=== PATIENT | female | born 1955 | race Caucasian/White ===

== ENCOUNTER 2016-04-14 09:20 | Emergency (ER) | payer OTHER ==
[~2016-04-14] VITALS: Ht 154.9 cm; Wt 80.0 kg
[~2016-04-14 09:20] MED LIST: ADVA100A; CIME200; HYZA100T4; LEVO.05
[2016-04-14 09:24] VITALS: BP 178/87; PULSE 72; RESP 18; TEMP 98; O2SAT 95
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
[2016-04-14] MEDS ORDERED: ACETAMINOPHEN/HYDROcodone 325 MG/5 MG TAB PO ONE (09:45)
[2016-04-14] MEDS ORDERED: BACL10TA PO (09:46)
[2016-04-14] MEDS ORDERED: MILN12.5 PO (09:46)
[2016-04-14] MEDS ORDERED: AMLO2.5T PO (09:46)
[2016-04-14] MEDS ORDERED: SULF500T3 PO (09:46)
[2016-04-14] MEDS ORDERED: ADVA100A INH (09:46)
[2016-04-14] MEDS ORDERED: MONT4CHW4 CHEW (09:46)
[2016-04-14] MEDS ORDERED: VENTAER INH (09:47)
[2016-04-14] MEDS ORDERED: PRED5TAB PO (09:47)
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
[2016-04-14] MEDS ORDERED: HYDR-3533 PO (11:03)
== END 2016-04-14 11:08 | disposition home or self-care (01) ==
LOC: NEPB 09:20
DX: S52.292A Other fracture of shaft of left ulna, initial encounter for closed fracture (principal); V43.52XA Car driver injured in collision with other type car in traffic accident, initial encounter
CPT/HCPCS: 29125; 73090; 73110; 73130

== ENCOUNTER 2016-04-16 14:54 | Emergency (ER) | payer OTHER ==
[~2016-04-16] VITALS: Ht 154.9 cm; Wt 80.0 kg
[~2016-04-16 14:54] MED LIST changes: -ADVA100A; +ADVA100A INH; +AMLO2.5T PO; +BACL10TA PO; -CIME200; +HYDR-3533 PO; -HYZA100T4; -LEVO.05; +MILN12.5 PO; +MONT4CHW4 CHEW; +PRED5TAB PO; +SULF500T3 PO; +VENTAER INH
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
[2016-04-16 15:25] VITALS: BP 144/77; PULSE 82; RESP 18; O2SAT 95
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
[2016-04-16 16:05] LABS: AUTOMATED NEUTROPHIL # 6.1 TH/MM3 (1.8-7.7); BASOPHIL % 0.4 % (0.0-2.0); EOSINOPHIL # 0.6 TH/MM3 (0-0.4); EOSINOPHIL % 5.4 % (0.0-4.0); HEMATOCRIT 37.6 % (35.0-46.0); HEMO FLAGS DIFF FINAL; LYMPH % 24.9 % (9.0-44.0); LYMPHOCYTE # 2.6 TH/MM3 (1.0-4.8); MEAN CELL VOLUME 83.1 FL (80.0-100.0); MEAN CORPUSCULAR HEMOGLOBIN 28.4 PG (27.0-34.0); MEAN CORPUSCULAR HGB CONC 34.2 % (32.0-36.0); MONO % 10.7 % (0.0-8.0); NEUT % 58.6 % (16.0-70.0); PLATELET COUNT 287 TH/MM3 (150-450); RED BLOOD COUNT 4.52 MIL/MM3 (4.00-5.30); RED CELL DISTRIBUTION WIDTH 13.3 % (11.6-17.2); WHITE BLOOD COUNT 10.5 TH/MM3 (4.0-11.0)
[2016-04-16 16:18] LABS: PROTHROMBIN TIME - PATIENT 10.7 SEC (9.8-11.6)
[2016-04-16 16:30] LABS: ALKALINE PHOSPHATASE 111 U/L (45-117); TOTAL BILIRUBIN ADULT 0.3 MG/DL (0.2-1.0)
[2016-04-16 16:44] LABS: ALT (GPT) 18 U/L (10-53); ANION GAP 8 MEQ/L (5-15); AST (GOT) 19 U/L (15-37); BICARBONATE 31.5 MEQ/L (21.0-32.0); BLOOD UREA NITROGEN 17 MG/DL (7-18); CHLORIDE 105 MEQ/L (98-107); GLOMERULAR FILTRATION RATE 67 ML/MIN (>89); POTASSIUM 3.5 MEQ/L (3.5-5.1); SODIUM (NA) 144 MEQ/L (136-145)
[2016-04-16] MEDS ORDERED: IOHEXOL 350 MG/ML 10 ML VIAL (for RAD DIAG) IV ONE (17:04)
[2016-04-16] MEDS ORDERED: MONT10TA4 PO (17:30)
[2016-04-16] MEDS ORDERED: SODIUM CHLOR 0.9% 1000 ML INJ 1,000 ML IV ONE (17:45)
[2016-04-16] MEDS ORDERED: KETOROLAC TROMETHAMINE 30 MG/ML (IVP) VIAL IV PUSH ONE (17:45)
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
[2016-04-16 17:48] VITALS: BP 162/75; PULSE 69; RESP 18; O2SAT 98
== END 2016-04-16 19:01 | disposition home or self-care (01) ==
LOC: NEPC 14:54
DX: S20.211A Contusion of right front wall of thorax, initial encounter (principal); S30.1XXA Contusion of abdominal wall, initial encounter; J45.909 Unspecified asthma, uncomplicated; I10 Essential (primary) hypertension; E07.9 Disorder of thyroid, unspecified; K21.9 Gastro-esophageal reflux disease without esophagitis; Z86.73 Personal history of transient ischemic attack (TIA), and cerebral infarction without residual deficits
CPT/HCPCS: 71010; 74177; 80053; 85025; 85610; 85730; 96361; 96374; 99284; J1885; J7030; Q9967

== ENCOUNTER 2017-12-11 14:27 | Inpatient (IN) ==
[2017-12-11 15:05] LABS: Baso % (Auto) 0.1 % (0.0-2.0); Eos # (Auto) 0.2 th/mm3 (0.0-0.4); Eos % (Auto) 1.3 % (0.0-4.0); Hematocrit 41.1 % (35.0-46.0); Hemoglobin 13.9 gm/dL (11.6-15.3); Lymph # (Auto) 0.7 th/mm3 (1.0-4.8); Lymph % (Auto) 5.9 % (9.0-44.0); Mean Corpuscular HGB Conc 33.7 % (32.0-36.0); Mean Corpuscular Volume 85.9 fL (80.0-100.0); Mean Platelet Volume 7.1 fL (7.0-11.0); Mono # (Auto) 0.8 th/mm3 (0.0-0.9); Mono % (Auto) 6.6 % (0.0-8.0); Neut # (Auto) 10.6 th/mm3 (1.8-7.7); Neut % (Auto) 86.1 % (16.0-70.0); Platelet Count 288 th/mm3 (150-450); Red Blood Count 4.79 mil/mm3 (4.00-5.30); White Blood Count 12.3 th/mm3 (4.0-11.0)
--- NOTE | 2017-12-11 15:25 | CT ---
EXAM DATE: 12/11/2017 3:18 PM EDT AGE/SEX: 62 years / Female INDICATIONS: Stroke alert, left facial droop and left side weakness. CLINICAL DATA: This is the patient's initial encounter. Patient reports that signs and symptoms have been present for 1 day and indicates a pain score of Nonresponsive. MEDICAL/SURGICAL HISTORY: Non-responsive. Non-responsive. RADIATION DOSE: 25.92 CTDI (mGy) ; Combined studies [place] [facility] [place]. . TECHNIQUE: Volumetric scanning was performed using a multi-row detector CT scanner during bolus infu renita of 75 ml Visipaque 320 (iodixanol) nonionic water-soluble contrast as a cumulative dose for mul tiple exams. The data was post processed with a variety of visualization algorithms including full volume maximum intensity projection, multi-planar sliding thin slab reformation, curved planar reform ation, and surface rendering techniques. Using automated exposure control and adjustment of the mA a nd/or kV according to patient size, radiation dose was kept as low as reasonably achievable to obtain optimal diagnostic quality images. DICOM format image data is available electronically for review a nd comparison. FINDINGS: There is excellent visualization of the major intracranial arteries out to the second-order branch ve ssels. There is no evidence for aneurysm, vessel truncation or stenosis, and no evidence for vascula r malformation. CONCLUSION: 1. No evidence of proximal intracranial steno-occlusive vascular disease. 2. Normal CTA Electronically signed by: Edvin Guthrie MD 12/11/2017 3:23 PM EDT
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
--- NOTE | 2017-12-11 15:31 | XR ---
EXAM DATE: 12/11/2017 3:23 PM EDT AGE/SEX: 62 years / Female INDICATIONS: Stroke alert. CLINICAL DATA: This is the patient's initial encounter. Patient reports that signs and symptoms have been present for 1 day and indicates a pain score of Nonresponsive. MEDICAL/SURGICAL HISTORY: Non-responsive. Non-responsive. COMPARISON: [facility] [place]. . FINDINGS: Lungs are hypoaerated. There is diffuse interstitial vascular prominence. There is no evidence of con solidating airspace disease or mass densities. There are no pleural effusions. CONCLUSION: Poor inspiratory chest No evidence of acute process. Electronically signed by: Edvin Guthrie MD 12/11/2017 3:29 PM EDT
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
[2017-12-11 15:56] LABS: Activated Partial Thrombo Time 28.1 sec (24.3-30.1); Prothrombin Time 10.2 sec (9.8-11.6)
--- NOTE | 2017-12-11 15:56 | ED ---
HPI General Chief Complaint: Stroke Alert Stated Complaint: Poss Stroke Time Seen by Provider: 12/11/17 14:49 Source: patient Mode of arrival: wheelchair Limitations: altered mental status History of Present Illness HPI Narrative: This is a 62-year-old woman who presents to the emergency department complaining of. History comes from EMS, and from records from the [facility] urgent care, and coworker. Coworker states that she has not felt well for the entire day, she was referred to an urgent care. At the urgent care they noted that she had acute headache with dizziness, off balance, double vision, nausea with resolving symptoms. Was referred for an outpatient CT scan. Coworker states when they picked her up from the urgent care she then had some facial asymmetry, and weakness in her left leg. She thus brought her here. Patient is unable to provide any additional history. Related Data Home Medications Medication Instructions Recorded Confirmed albuterol sulfate [Ventolin HFA] 2 puff INHALATION Q4-6H PRN 12/11/17 12/11/17 amlodipine [Norvasc] 5 mg PO DAILY 12/11/17 12/11/17 aspirin 81 mg PO DAILY 12/11/17 12/11/17 baclofen 10 mg PO BID 12/11/17 12/11/17 cetirizine [Zyrtec] 10 mg PO DAILY 12/11/17 12/11/17 ibuprofen 200 mg PO Q6-8H PRN 12/11/17 12/11/17 leflunomide 10 mg PO DAILY 12/11/17 12/11/17 levothyroxine [Synthroid] 50 mcg PO DAILY 12/11/17 12/11/17 milnacipran [Savella] 100 mg PO BID 12/11/17 12/11/17 ranitidine HCl [Zantac] 150 mg PO BID 12/11/17 12/11/17 Allergies Allergy/AdvReac Type Severity Reaction Status Date / Time levofloxacin Allergy Severe Hives Unverified 11/14/16 21:01 penicillin G Allergy Intermediate HIVES Unverified 11/14/16 21:01 Review of Systems ROS: all other systems reviewed are negative PMFSH History History Provided By: Friend and Medical Record Social History Social History Substance History: No History of Abuse Second Hand Smoke Exposure: No Smoking Status: Never smoker How Often Do You Have a Drink Containing Alcohol: 2 to 4 times a month Recent Travel in [facility] within the Last 8 Weeks: No Exam Narrative Exam Narrative: GENERAL: 62-year-old woman, sluggishly responsive, nontoxic. SKIN: Focused skin assessment warm/dry. HEAD: Atraumatic. Normocephalic. EYES: Pupils equal and round. No scleral icterus. No injection or drainage. ENT: No nasal bleeding or discharge. Mucous membranes pink and moist. NECK: Trachea midline. No JVD. CARDIOVASCULAR: Regular rate and rhythm. No murmur appreciated. RESPIRATORY: No accessory muscle use. Clear to auscultation. Breath sounds equal bilaterally. GASTROINTESTINAL: Abdomen soft, non-tender, nondistended. Hepatic and splenic margins not palpable. MUSCULOSKELETAL: No obvious deformities. No clubbing. No cyanosis. No edema. NEUROLOGICAL: Decreased alertness. Slow to speak. Bradycardia for anemia. Some facial asymmetry but unclear if she has defined droop. There does appear to be some forehead involvement on the left. 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 Significant weakness on the left leg. Minimal strength against gravity. Endorses subjective sensory changes in the left also. PSYCHIATRIC: Appropriate mood and affect; insight and judgment normal. Course Initial Documented Vital Signs Temperature 99.9 F H 12/11/17 14:33 Pulse Rate 85 12/11/17 14:33 Respiratory Rate 16 12/11/17 14:33 Blood Pressure 169/88 H 12/11/17 14:33 Pulse Oximetry 96 12/11/17 14:33 Last Documented Vital Signs Temperature 98.7 F 12/12/17 16:00 Pulse Rate 88 12/12/17 16:49 Respiratory Rate 17 12/12/17 16:00 Blood Pressure 115/61 12/12/17 16:00 Pulse Oximetry 96 12/12/17 16:00 NIH Stroke Scale NIH Stroke Scale Level of Consciousness: 1-Drowsy Orientation Questions: 0-Answers both correct Responds to Commands: 0-Both tasks correct Gaze Eye Movement: 0-Horizontal movement WNL Visual Cuellar: 0-No visual field defect Facial Movement: 2-Partial facial palsy Motor Functions Arm LEFT: 2-Falls before 10 seconds Motor Functions Arm RIGHT: 0-No drift Motor Functions Leg LEFT: 2-Falls before 5 seconds Motor Functions Leg RIGHT: 0-No drift Limb Ataxia: 1-Ataxia in one limb Best Language: 1-Mild aphasia Articulation: 0-Normal Extinction or Inattention Sensory: 1-Loss 1 sensory modality Total: 10 Medical Decision Making MDM Narrative Medical decision making narrative: 62-year-old woman, abrupt onset neurologic symptoms, time of onset is a little bit unclear because it seems like his symptoms were ongoing to some extent from before this. She was called as a stroke alert. I spoke with Dr. Barragan. Given the unclear time of onset, we obtained emergent MRI. This was reviewed by neurology. He also spoke to the patient. Given the inconsistencies in her exam, unclear time of onset, hesitancy of the patient except TPA, decision was made to defer TPA at this time. She will be admitted to the hospital for further evaluation and monitoring. Medical Screen Exam Complete: Yes Emergency Medical Condition: Yes Lab Data Lab results reviewed: Yes I reviewed the patient's lab results. Result diagrams: 12/11/17 14:45 Lab Results 12/11/17 12/11/17 12/11/17 Range/Units 14:45 14:45 14:45 WBC 12.3 H (4.0-11.0) th/mm3 RBC 4.79 (4.00-5.30) mil/mm3 Hgb 13.9 (11.6-15.3) gm/dL POC Hgb (Calc) 13.9 (11.6-15.3) g/dL Hct 41.1 (35.0-46.0) % POC Hct 41.0 (35-46.0) % MCV 85.9 (80.0-100.0) fL MCH 29.0 (27.0-34.0) pg MCHC 33.7 (32.0-36.0) % RDW 13.0 (11.6-17.2) % Plt Count 288 (150-450) th/mm3 MPV 7.1 (7.0-11.0) fL Neut % (Auto) 86.1 H (16.0-70.0) % Lymph % (Auto) 5.9 L (9.0-44.0) % Henry % (Auto) 6.6 (0.0-8.0) % Eos % (Auto) 1.3 (0.0-4.0) % Baso % (Auto) 0.1 (0.0-2.0) % Neut # (Auto) 10.6 H (1.8-7.7) th/mm3 Lymph # (Auto) 0.7 L (1.0-4.8) th/mm3 Henry # (Auto) 0.8 (0.0-0.9) th/mm3 Eos # (Auto) 0.2 (0.0-0.4) th/mm3 Baso # (Auto) 0.0 (0.0-0.2) th/mm3 WBC Differential . Differential Comment Auto diff final PT 10.2 (9.8-11.6) sec INR 1.0 Ratio APTT 28.1 (24.3-30.1) sec Fibrinogen 434 H (227-377) mg/dL POC Sodium 140 (137-144) mmol/L POC Potassium 3.5 L (3.6-5.0) mmol/L POC Chloride 100 L (102-111) mmol/L POC BUN 19 (5-21) mg/dL POC Creatinine 0.7 (0.6-1.3) mg/dL POC Glucose 131 H (68-110) mg/dL Hemoglobin A1c (4.3-6.0) % Total Creatine Kinase 75 (26-192) U/L Troponin I Less than 0.02 L (0.02-0.05) ng/mL C-Reactive Protein (0.00-0.30) mg/dL Triglycerides (42-150) mg/dL Cholesterol (120-200) mg/dL LDL Cholesterol, Calc (0-99) mg/dL HDL Cholesterol (40.0-60.0) mg/dL Cholesterol/HDL Ratio Ratio Vitamin B12 (193-986) pg/mL TSH (0.358-3.740) uIU/mL Beta HCG, Quant 2 (0-5) mIU/mL Urine Color (Yellw/Straw) Urine Clarity (Clear) Urine pH (5.0-8.5) Ur Specific [employer] (1.002-1.035) Urine Protein (Neg-Trace) mg/dL Urine Glucose (UA) (Negative) mg/dL Urine Ketones (Negative) mg/dL Urine Occult Blood (Negative) Urine Nitrate (Negative) Urine Bilirubin (Negative) Urine Urobilinogen (Less than 2) mg/dL Ur Leukocyte Esterase (Negative) Urine RBC (0-3) /hpf Urine WBC (0-5) /hpf Ur Squamous Epith Cells (0-5) /hpf Micro UA Comment Ur Microscopic Review Urine Culture Comments Urine Opiates Screen (Neg) Ur Barbiturates Screen (Neg) Ur Amphetamines Screen (Neg) U Benzodiazepines Scrn (Neg) Urine Cocaine Screen (Neg) U Cannabinoids Screen (Neg) Blood Type Blood Type Recheck Antibody Screen 12/11/17 12/11/17 12/11/17 Range/Units 14:45 14:45 18:00 WBC (4.0-11.0) th/mm3 RBC (4.00-5.30) mil/mm3 Hgb (11.6-15.3) gm/dL POC Hgb (Calc) (11.6-15.3) g/dL Hct (35.0-46.0) % POC Hct (35-46.0) % MCV (80.0-100.0) fL MCH (27.0-34.0) pg MCHC (32.0-36.0) % RDW (11.6-17.2) % Plt Count (150-450) th/mm3 MPV (7.0-11.0) fL Neut % (Auto) (16.0-70.0) % Lymph % (Auto) (9.0-44.0) % Henry % (Auto) (0.0-8.0) % Eos % (Auto) (0.0-4.0) % Baso % (Auto) (0.0-2.0) % Neut # (Auto) (1.8-7.7) th/mm3 Lymph # (Auto) (1.0-4.8) th/mm3 Henry # (Auto) (0.0-0.9) th/mm3 Eos # (Auto) (0.0-0.4) th/mm3 Baso # (Auto) (0.0-0.2) th/mm3 WBC Differential Differential Comment PT (9.8-11.6) sec INR Ratio APTT (24.3-30.1) sec Fibrinogen (227-377) mg/dL POC Sodium (137-144) mmol/L POC Potassium (3.6-5.0) mmol/L POC Chloride (102-111) mmol/L POC BUN (5-21) mg/dL POC Creatinine (0.6-1.3) mg/dL POC Glucose (68-110) mg/dL Hemoglobin A1c (4.3-6.0) % Total Creatine Kinase (26-192) U/L Troponin I (0.02-0.05) ng/mL C-Reactive Protein 1.60 H (0.00-0.30) mg/dL Triglycerides (42-150) mg/dL Cholesterol (120-200) mg/dL LDL Cholesterol, Calc (0-99) mg/dL HDL Cholesterol (40.0-60.0) mg/dL Cholesterol/HDL Ratio Ratio Vitamin B12 662 (193-986) pg/mL TSH 1.140 (0.358-3.740) uIU/mL Beta HCG, Quant (0-5) mIU/mL Urine Color (Yellw/Straw) Urine Clarity (Clear) Urine pH (5.0-8.5) Ur Specific [employer] (1.002-1.035) Urine Protein (Neg-Trace) mg/dL Urine Glucose (UA) (Negative) mg/dL Urine Ketones (Negative) mg/dL Urine Occult Blood (Negative) Urine Nitrate (Negative) Urine Bilirubin (Negative) Urine Urobilinogen (Less than 2) mg/dL Ur Leukocyte Esterase (Negative) Urine RBC (0-3) /hpf Urine WBC (0-5) /hpf Ur Squamous Epith Cells (0-5) /hpf Micro UA Comment Ur Microscopic Review Urine Culture Comments Urine Opiates Screen Neg (Neg) Ur Barbiturates Screen Neg (Neg) Ur Amphetamines Screen Neg (Neg) U Benzodiazepines Scrn Neg (Neg) Urine Cocaine Screen Neg (Neg) U Cannabinoids Screen Neg (Neg) Blood Type O Positive Blood Type Recheck Required Antibody Screen Negative 12/11/17 12/12/17 12/12/17 Range/Units 18:00 07:01 07:01 WBC (4.0-11.0) th/mm3 RBC (4.00-5.30) mil/mm3 Hgb (11.6-15.3) gm/dL POC Hgb (Calc) (11.6-15.3) g/dL Hct (35.0-46.0) % POC Hct (35-46.0) % MCV (80.0-100.0) fL MCH (27.0-34.0) pg MCHC (32.0-36.0) % RDW (11.6-17.2) % Plt Count (150-450) th/mm3 MPV (7.0-11.0) fL Neut % (Auto) (16.0-70.0) % Lymph % (Auto) (9.0-44.0) % Henry % (Auto) (0.0-8.0) % Eos % (Auto) (0.0-4.0) % Baso % (Auto) (0.0-2.0) % Neut # (Auto) (1.8-7.7) th/mm3 Lymph # (Auto) (1.0-4.8) th/mm3 Henry # (Auto) (0.0-0.9) th/mm3 Eos # (Auto) (0.0-0.4) th/mm3 Baso # (Auto) (0.0-0.2) th/mm3 WBC Differential Differential Comment PT (9.8-11.6) sec INR Ratio APTT (24.3-30.1) sec Fibrinogen (227-377) mg/dL POC Sodium (137-144) mmol/L POC Potassium (3.6-5.0) mmol/L POC Chloride (102-111) mmol/L POC BUN (5-21) mg/dL POC Creatinine (0.6-1.3) mg/dL POC Glucose (68-110) mg/dL Hemoglobin A1c 5.7 (4.3-6.0) % Total Creatine Kinase (26-192) U/L Troponin I (0.02-0.05) ng/mL C-Reactive Protein (0.00-0.30) mg/dL Triglycerides 92 (42-150) mg/dL Cholesterol 125 (120-200) mg/dL LDL Cholesterol, Calc 61 (0-99) mg/dL HDL Cholesterol 46.0 (40.0-60.0) mg/dL Cholesterol/HDL Ratio 2.71 Ratio Vitamin B12 (193-986) pg/mL TSH (0.358-3.740) uIU/mL Beta HCG, Quant (0-5) mIU/mL Urine Color Yellow (Yellw/Straw) Urine Clarity Clear (Clear) Urine pH 6.0 (5.0-8.5) Ur Specific [employer] 1.039 H (1.002-1.035) Urine Protein Negative (Neg-Trace) mg/dL Urine Glucose (UA) Negative (Negative) mg/dL Urine Ketones Negative (Negative) mg/dL Urine Occult Blood Large H (Negative) Urine Nitrate Negative (Negative) Urine Bilirubin Negative (Negative) Urine Urobilinogen Less than 2 (Less than 2) mg/dL Ur Leukocyte Esterase Negative (Negative) Urine RBC 34 H (0-3) /hpf Urine WBC 2 (0-5) /hpf Ur Squamous Epith Cells <1 (0-5) /hpf Micro UA Comment Cath-culture not ind Ur Microscopic Review Not Reportable Urine Culture Comments Cath-cult not ind Urine Opiates Screen (Neg) Ur Barbiturates Screen (Neg) Ur Amphetamines Screen (Neg) U Benzodiazepines Scrn (Neg) Urine Cocaine Screen (Neg) U Cannabinoids Screen (Neg) Blood Type Blood Type Recheck Antibody Screen Imaging Data Radiologist's impression: Carotid Doppler Study 12/11/17 00:00 CONCLUSION: 1. Right Internal Carotid Artery: No significant plaque or narrowing. 2. Left Internal Carotid Artery: No significant plaque or narrowing. Chest X-Ray 12/11/17 14:45 CONCLUSION: Poor inspiratory chest No evidence of acute process. Head CT 12/11/17 14:45 CONCLUSION: 1. No evidence of acute infarct, hemorrhage, mass or edema. 2. Normal CT of the brain. Report was called by Dr. Guthrie to Dr. Escobar at 1528. Head CTA 12/11/17 14:45 CONCLUSION: 1. No evidence of proximal intracranial steno-occlusive vascular disease. 2. Normal CTA Neck CTA 12/11/17 14:45 CONCLUSION: 1. Negative CTA of the carotids. 2. Both vertebral arteries are widely patent. Head MRI 12/11/17 14:53 CONCLUSION: 1. Negative MR Brain non contrast. 2. No evidence of acute infarct, hemorrhage, mass or edema. Head MRI 12/12/17 00:00 CONCLUSION: 1. Stable evaluation the brain. 2. No evidence of acute infarct, hemorrhage, mass or edema. CT head, CT, CTA all negative ECG Data Attestation: I personally reviewed and interpreted this ECG as follows: Interpretation: Normal sinus rhythm at a rate of 83, normal axis, normal intervals, no acute ischemia. Discharge Plan Discharge Disposition Patient Disposition: Disch To Another Hospital Discharge Condition Condition: Stable Discharge Order Discharge Orders: Discharge Order (Routine); Ordered 12/12/17 Ordered By: Jac Rodriges Discharge Details Anticipated Discharge Date: 12/12/17 Physicians Team ED Provider: Chad Escobar Primary Care Provider: UNKNOWN, Attending Provider: Jac Rodriges Other Providers: Steven Barragan ; Babatunde Bass ; [facility],Agency Status ED Status: Left Department Discharge Information Discharge Date/Time: 12/11/17 18:50
--- NOTE | 2017-12-11 15:56 | P.CONNEU ---
History of Present Illness Service: Neurology Reason for Consult: Stroke Alert Chief Complaint: Stroke alert History of Present Illness: 62 y/o f admitted for stroke alert. Was not feeling well today. She went to the urgent care center around 1230pm her feelings and nausea and headache. Friend noticed her to have some left-sided weakness and told to come to the ER. Unclear how long she has had some the left-sided weakness the patient was not able to tell specifically.. She is then brought here due to progressive weakness on left side. Patient denies taking any blood thinners. She states she takes baclofen for leg pain. She denies any head or neck trauma. Admits to moderate to significant stressors at home. cta brain negative. mri brain negative for acute stroke. Review of Systems All other systems reviewed negative except as stated in [facility] - Medical History Medical History: Medical History (Last Updated 12/11/17 @ 16:20 by Chad Escobar MD) Asthma Essential hypertension Hypothyroid - Travel History Recent Travel in the [facility] Within the Last 8 Weeks: No Medications and Allergies Allergies Allergy/AdvReac Type Severity Reaction Status Date / Time levofloxacin Allergy Severe Hives Unverified 11/14/16 21:01 penicillin G Allergy Intermediate HIVES Unverified 11/14/16 21:01 Exam Vital signs: Vital Signs 12/11/17 14:33 12/11/17 14:50 12/11/17 15:34 Temperature 99.9 F H 99.9 F H Pulse Rate 85 85 88 Respiratory Rate 16 16 18 Blood Pressure 169/88 H 169/88 H 156/71 H Pulse Oximetry 96 96 95 Intake & Output 12/10/17 12/11/17 12/11/17 18:59 06:59 18:59 Weight 91 kg Narrative: Awake alert poor eye contact. Articulate, but has changes of fluency in her speech. Follows motor request of all 4 extremities. No gaze deviation. When checking her pupils are all her eyes up and at times prior eyes closed pupillary exam. No facial asymmetry however when she is asked to smile she only draws her right side. When asked to raise her left arm or leg she does not however with encouragement she is able to raise it keep it above her head. It does not fall or head but she slowly placed it back on her chest. She is able to open and close her hands and seamer crudely with encouragement. Reflexes 1+ symmetric plantarflex her no clonus elicited. - Constitutional no acute distress - Routine HEENT Exam Head: Present: normocephalic Eye: Present: EOMI - Routine Neck Exam Present: supple, full ROM - Routine Respiratory Exam Present: CTA bilaterally - Routine Cardiovascular Exam Present: RRR - Routine Abdominal Exam Present: soft, normoactive bowel sounds Results - Labs CBC & Chem 7: 12/11/17 14:45 Labs: Laboratory Results - last 24 hr 12/11/17 12/11/17 12/11/17 14:45 14:45 14:45 WBC 12.3 H RBC 4.79 Hgb 13.9 POC Hgb (Calc) 13.9 Hct 41.1 POC Hct 41.0 MCV 85.9 MCH 29.0 MCHC 33.7 RDW 13.0 Plt Count 288 MPV 7.1 Neut % (Auto) 86.1 H Lymph % (Auto) 5.9 L [place] % (Auto) 6.6 Eos % (Auto) 1.3 Baso % (Auto) 0.1 Neut # (Auto) 10.6 H Lymph # (Auto) 0.7 L [place] # (Auto) 0.8 Eos # (Auto) 0.2 Baso # (Auto) 0.0 WBC Differential . Differential Comment Auto diff final POC Sodium 140 POC Potassium 3.5 L POC Chloride 100 L POC BUN 19 POC Creatinine 0.7 POC Glucose 131 H Blood Type O Positive Blood Type Recheck Required Antibody Screen Negative - Imaging Impressions Chest X-Ray 12/11/17 14:45 CONCLUSION: Poor inspiratory chest No evidence of acute process. Head CT 12/11/17 14:45 CONCLUSION: 1. No evidence of acute infarct, hemorrhage, mass or edema. 2. Normal CT of the brain. Report was called by Dr. Guthrie to Dr. Escobar at 1528. Head CTA 12/11/17 14:45 CONCLUSION: 1. No evidence of proximal intracranial steno-occlusive vascular disease. 2. Normal CTA Head MRI 12/11/17 14:53 CONCLUSION: 1. Negative MR Brain non contrast. 2. No evidence of acute infarct, hemorrhage, mass or edema. Review/Management - Diagnosis (1) Weakness Code(s): R53.1 - Weakness Status: Acute Current Visit: Yes (2) Stress at home Code(s): F43.9 - Reaction to severe stress, unspecified Status: Acute Current Visit: Yes (3) Hypertension Code(s): I10 - Essential (primary) hypertension Status: Acute Current Visit : Yes (4) Febrile Code(s): R50.9 - Fever, unspecified Status: Acute Current Visit: Yes - Review/Management Plan: Segment consistency on examination. Possible psychogenic weakness related to home stressors. However does have a mild fever and slightly hypertensive. Monitor exam Coworker states she has had a stroke a few years ago although no evidence on MRI scan. Recommendation Telemetry Follow-up UA Follow vitals, fever Follow exam. May repeat an MRI brain for weakness persists PT
[2017-12-11 15:57] LABS: Beta HCG,Quantitative 2 mIU/mL (0-5)
[2017-12-11 16:00] LABS: Creatine Kinase 75 U/L (26-192)
--- NOTE | 2017-12-11 16:23 | CT ---
EXAM DATE: 12/11/2017 3:49 PM EDT AGE/SEX: 62 years / Female INDICATIONS: Stroke alert, left facial droop and left side weakness. CLINICAL DATA: This is the patient's initial encounter. Patient reports that signs and symptoms have been present for 1 day and indicates a pain score of Nonresponsive. MEDICAL/SURGICAL HISTORY: Non-responsive. Non-responsive. RADIATION DOSE: 25.92 CTDI (mGy) ; Combined studies COMPARISON: No prior exams available for comparison. TECHNIQUE: Volumetric scanning was performed using a multirow detector CT scanner during bolus infus ion of 75 ml Visipaque 320 (iodixanol) nonionic water-soluble contrast as a cumulative dose for mult iple exams. The data was postprocessed with a variety of visualization algorithms including full-vo lume maximum intensity projection, multiplanar sliding thin-slab reformation, curved-planar reformati on, and surface-rendering techniques. Using automated exposure control and adjustment of the mA and/ or kV according to patient size, radiation dose was kept as low as reasonably achievable to obtain op timal diagnostic quality images. DICOM format image data is available electronically for review and comparison. Percent stenosis is calculated using the diameter of the stenotic region over the diameter of the nor mal distal internal carotid artery. FINDINGS: Aortic Arch: There is a three-vessel origin of the great vessels from the aorta. No evidence of ost ial narrowing Right Carotid: The common carotid artery is intact. The carotid bulb has a normal configuration wit hout ulceration or narrowing. The internal carotid artery lumen is smooth without stenosis. The ext ernal carotid artery is intact. Left Carotid: The common carotid artery is intact. The carotid bulb has a normal configuration with out ulceration or narrowing. The internal carotid artery lumen is smooth without stenosis. The exte rnal carotid artery is intact. Vertebrals: The vertebral arteries have a symmetric diameter. No stenotic lesions are seen. CONCLUSION: 1. Negative CTA of the carotids. 2. Both vertebral arteries are widely patent. Electronically signed by: Sia Stallworth MD 12/11/2017 4:22 PM EDT
--- NOTE | 2017-12-11 16:55 | P.HPIM ---
History of Present Illness Primary Care Physician: UNKNOWN Chief Complaint: Stroke alert History of Present Illness: HPI Narrative: This is a 62-year-old woman who presents to the emergency department complaining of. History comes from EMS, and from records from the [facility] urgent care, and coworker. Coworker states that she has not felt well for the entire day, she was referred to an urgent care. At the urgent care they noted that she had acute headache with dizziness, off balance, double vision, nausea with resolving symptoms. Was referred for an outpatient CT scan. Coworker states when they picked her up from the urgent care she then had some facial asymmetry, and weakness in her left leg. She thus brought her here. Patient is unable to provide any additional history. PMH: Asthma Essential hypertension Hypothyroid PSH: cholecystectomy FHX: non-contributory SHX: no tobacco, no alcohol, no illicit drugs ALL: levofloxacin, Pen G - Diagnosis (1) Weakness (2) Hypertension Inpatient Certification: I certify that the inpatient services were ordered in accordance with Medicare regulations governing the order. This includes certification that hospital inpatient services are reasonable and necessary and in the case of services not specified as inpatient-only under 42 CFR 419.22(n), that they are appropriately provided as inpatient services in accordance to with the 2-midnight benchmark under 43 CFR 412.3(e) Estimated Total Length of Stay (Days): 3 Plans for Post Hospital Care: Not yet determined Review of Systems Constitutional: Denies anorexia, Denies body ache(s), Denies chills, Denies fever(s), Denies night sweats, Denies poor appetite, Denies weight gain, Denies weight loss Eyes: Denies blind spots, Denies blurry vision, Denies change in vision, Denies double vision, Denies discharge, Denies loss of peripheral vision, Denies loss of vision, Denies other visual disturbances, Denies pain Ears, Nose, Mouth, and Throat: Denies bleeding gums, Denies difficulty swallowing, Denies dizziness, Denies headache(s), Denies hearing loss, Denies pain with swallowing, Denies poor balance, Denies ringing in the ears, Denies sore throat, Denies throat swelling, Denies tongue swelling Cardiovascular: Denies chest pain, Denies excessive sweating, Denies fainting, Denies fast heart rate, Denies generalized swelling, Denies irregular heart rhythm, Denies leg swelling, Denies lightheadedness, Denies slow heart rate Respiratory: Denies cough, Denies shortness of breath, Denies snoring, Denies wheezing Gastrointestinal: Denies abdominal pain, Denies belching, Denies black, tarry stools, Denies bright, red blood in stools, Denies change in bowel habits, Denies change in stools, Denies coffee ground vomit, Denies constipation, Denies cramping, Denies difficulty swallowing, Denies heartburn, Denies incontinent of stools, Denies loose stools, Denies nausea, Denies pain with swallowing, Denies vomiting, Denies vomiting blood Genitourinary: Denies abnormal vaginal bleeding, Denies blood in urine, Denies difficulty starting urination, Denies difficulty urinating, Denies frequent nighttime urination, Denies painful urination, Denies pelvic pain, Denies side pain, Denies urinary incontinence, Denies urinary hesitancy, Denies urinary urgency Musculoskeletal: Denies abnormal walking, Denies back pain, Denies body aches, Denies decreased muscle mass, Denies joint pain, Denies joint swelling, Denies muscle weakness, Denies neck pain, Denies numbness, Denies stiffness, Denies tingling Skin/Breast: Denies bleeding lesions, Denies change in skin color, Denies changing lesions, Denies itching, Denies lesions, Denies new lesions, Denies non -healing lesions, Denies redness, Denies sensitivity to light, Denies rash, Denies skin pain, Denies skin swelling, Denies skin ulcer, Denies sores, Denies unusual bruising, Denies wounds, Denies yellowing of the skin Neurologic: Reports other Comments: see HPI Psychiatric: Denies abnormal sleep pattern, Denies anxiety, Denies behavioral changes, Denies change in appetite, Denies confusion, Denies depression, Denies difficulty concentrating, Denies hearing things others do not hear, Denies irritability, Denies lack of enjoyment, Denies memory loss, Denies mood swings, Denies panic attacks, Denies paranoia, Denies seeing things others do not see, Denies thoughts of hurting/killing others, Denies thoughts of hurting/killing yourself Endocrine: Denies cold intolerance, Denies excessive sweating, Denies fatigue, Denies flushing, Denies heat intolerance, Denies increased hunger, Denies increased thirst, Denies increased urination, Denies rapid, pounding, or irregular heartbeat Hematologic/Lymphatic: Denies easy bleeding, Denies easy bruising, Denies enlarged lymph nodes Allergic/Immunologic: Denies hives, Denies lip swelling, Denies throat swelling , Denies wheezing PMFSH - History History Provided By: Friend, Medical Record - Medical History Medical History: Medical History (Last Reviewed 12/12/17 @ 08:06 by Darlene Johnson) Asthma Essential hypertension Hx of hysterectomy Hypothyroid - Surgical History Surgical History: Surgical History (Last Reviewed 12/12/17 @ 08:06 by Darlene Johnson) Hx of cholecystectomy - Travel History Recent Travel in the [facility] Within the Last 8 Weeks: No Medications and Allergies Active Medications: Active Medications Aspirin (Aspirin) 325 mg PO DAILY [facility] Enalaprilat (Vasotec Inj) 1.25 mg IV.PUSH Q4H PRN PRN Reason: For SBP > 220 or DBP > 120 Sodium Chloride (Ns Flush) 2 ml IV.FLUSH BID JILLIAN Sodium Chloride (Ns Flush) 2 ml IV.FLUSH PRN PRN PRN Reason: FLUSH AFTER USING IV ACCESS Allergies Allergy/AdvReac Type Severity Reaction Status Date / Time levofloxacin Allergy Severe Hives Unverified 11/14/16 21:01 penicillin G Allergy Intermediate HIVES Unverified 11/14/16 21:01 Home Medications Medication Instructions Recorded Confirmed Type albuterol sulfate [Ventolin HFA] 2 puff INHALATION Q4-6H PRN 12/11/17 12/11/17 History amlodipine [Norvasc] 5 mg PO DAILY 12/11/17 12/11/17 History aspirin 81 mg PO DAILY 12/11/17 12/11/17 History baclofen 10 mg PO BID 12/11/17 12/11/17 History cetirizine [Zyrtec] 10 mg PO DAILY 12/11/17 12/11/17 History ibuprofen 200 mg PO Q6-8H PRN 12/11/17 12/11/17 History leflunomide 10 mg PO DAILY 12/11/17 12/11/17 History levothyroxine [Synthroid] 50 mcg PO DAILY 12/11/17 12/11/17 History milnacipran [Savella] 100 mg PO BID 12/11/17 12/11/17 History ranitidine HCl [Zantac] 150 mg PO BID 12/11/17 12/11/17 History Exam Vital signs: 12/11/17 15:59 Temperature 97.8 F Pulse Rate 88 Respiratory Rate 18 Blood Pressure 154/74 H Pulse Oximetry 97 Narrative: GENERAL: This is a well-nourished, well-developed patient, in no apparent distress. CARDIOVASCULAR: Regular rate and rhythm without murmurs, gallops, or rubs. RESPIRATORY: Clear to auscultation. Breath sounds equal bilaterally. No wheezes , rales, or rhonchi. GASTROINTESTINAL: Abdomen soft, non-tender, nondistended. Normal active bowel sounds MUSCULOSKELETAL: Extremities without clubbing, cyanosis, or edema. NEURO: Alert & Oriented x4 to person, place, time, situation. Moves all ext x4 Results - Labs CBC & Chem 7: 12/11/17 14:45 - Imaging Chest X-Ray 12/11/17 14:45 Poor inspiratory chest No evidence of acute process. Head CT 12/11/17 14:45 1. No evidence of acute infarct, hemorrhage, mass or edema. 2. Normal CT of the brain. Head CTA 12/11/17 14:45 1. No evidence of proximal intracranial steno-occlusive vascular disease. 2. Normal CTA Neck CTA 12/11/17 14:45 1. Negative CTA of the carotids. 2. Both vertebral arteries are widely patent. Head MRI 12/11/17 14:53 1. Negative MR Brain non contrast. 2. No evidence of acute infarct, hemorrhage, mass or edema. Caprini VTE Risk Assessment Caprini VTE Risk Assessment: Moderate/High Risk (score >= 2) Caprini Risk Assessment Model: Point Value = 1 Point Value = 2 Point Value = 3 Point Value = 5 Age 41-60 Minor surgery BMI > 25 kg/m2 Swollen legs Varicose veins or History of unexplained or recurrent spontaneous Oral contraceptives or hormone replacement Sepsis (< 1 month) Serious lung disease, including pneumonia (< 1 month) Abnormal pulmonary function Acute myocardial infarction Congestive heart failure (< 1 month) History of inflammatory bowel disease Medical patient at bed rest Age 61-74 Arthroscopic surgery Major open surgery (> 45 min) Laparoscopic surgery (> 45 min) Malignancy Confined to bed (> 72 hours) Immobilizing plaster cast Central venous access Age >= 75 History of VTE Family history of VTE Factor V Leiden Prothrombin [id number] Lupus anticoagulant Anticardiolipin antibodies Elevated serum homocysteine Heparin-induced thrombocytopenia Other congenital or acquired thrombophilia Stroke (< 1 month) Elective arthroplasty Hip, pelvis, or leg fracture Acute spinal cord injury (< 1 month) Prophylaxis Regimen: Total Risk Factor Score Risk Level Prophylaxis Regimen 0-1 Low Early ambulation 2 Moderate Order ONE of the following: *Sequential Compression Device (SCD) *Heparin 5000 units SQ BID 3-4 Higher Order ONE of the following medications: *Heparin 5000 units SQ TID *Enoxaparin/Lovenox 40 mg SQ daily (WT < 150 kg, CrCl > 30 mL/min) *Enoxaparin/Lovenox 30 mg SQ daily (WT < 150 kg, CrCl > 10-29 mL/min) *Enoxaparin/Lovenox 30 mg SQ BID (WT < 150 kg, CrCl > 30 mL/min) AND/OR *Sequential Compression Device (SCD) 5 or more Highest Order ONE of the following medications: *Heparin 5000 units SQ TID (Preferred with Epidurals) *Enoxaparin/Lovenox 40 mg SQ daily (WT < 150 kg, CrCl > 30 mL/min) *Enoxaparin/Lovenox 30 mg SQ daily (WT < 150 kg, CrCl > 10-29 mL/min) *Enoxaparin/Lovenox 30 mg SQ BID (WT < 150 kg, CrCl > 30 mL/min) AND *Sequential Compression Device (SCD) Assessment and Plan - Assessment (1) Weakness Code(s): R53.1 - Weakness Status: Acute Plan: - head CTA (12/11/17) --> NO acute findings - Brain MRI (12/11/17) --> no acute findings - appreciate input from Neurology. - possible psychiatric etiology - observe overnight on telemetry - anticipate d/c to home 12/12 (2) Hypertension Code(s): I10 - Essential (primary) hypertension Status: Acute Plan: - resume home medications
[2017-12-11 18:35] LABS: Bilirubin,Urine Negative (Negative); Clarity,Urine Clear (Clear); Color,Urine Yellow (Yellw/Straw); Glucose,Urine (UA) Negative (Negative); Leukocyte Esterase,Urine Negative (Negative); Nitrite,Urine Negative (Negative); Specific Gravity,Urine 1.039 (1.002-1.035); Squamous Epithelial Cell,Urine <1 /hpf (0-5)
[2017-12-11 18:36] LABS: Amphetamine Screen,Urine Neg (Neg); Barbiturate Screen,Urine Neg (Neg); Cannabinoid Screen,Urine Neg (Neg); Cocaine Screen,Urine Neg (Neg)
[2017-12-11 18:51] LABS: Opiate Screen,Urine Neg (Neg)
[2017-12-11 19:37] LABS: C-Reactive Protein 1.6 mg/dL (0.00-0.30)
--- NOTE | 2017-12-11 19:41 | US ---
EXAM DATE: 12/11/2017 7:28 PM EDT AGE/SEX: 62 years / Female INDICATIONS: Transient ischemic attack. CLINICAL DATA: This is the patient's initial encounter. Patient reports that signs and symptoms have been present for 1 day and indicates a pain score of 0/10. MEDICAL/SURGICAL HISTORY: Asthma. Hypertension. Hypothyroidism. None. COMPARISON: No prior exams available for comparison. VELOCITY PARAMETERS: ICA/CCA Ratio: Right 1.1 , Left 1.4 ICA: Right 101.6 cm/sec, Left 119.9 cm/sec CCA: Right 91.9 cm/sec, Left 87.1 cm/sec ECA: Right 84.0 cm/sec, Left 53.0 cm/sec Vertebral: Right 42.7 cm/sec antegrade, Left 53.1 cm/sec antegrade FINDINGS: Right Carotid: No significant plaque is visualized.The waveforms are within normal limits. Left Carotid: No significant plaque is visualized. The waveforms are within normal limits. Other: None. CONCLUSION: 1. Right Internal Carotid Artery: No significant plaque or narrowing. 2. Left Internal Carotid Artery: No significant plaque or narrowing. Electronically signed by: Mirza Palencia MD 12/11/2017 7:39 PM EDT
[2017-12-11 20:02] LABS: Thyroid Stimulating Hormone 1.14 uIU/mL (0.358-3.740)
[2017-12-12 08:46] LABS: Chol/HDL Ratio 2.71 Ratio
[2017-12-12] MEDS ORDERED: Aspirin 325 MG Tablet PO SCH ×2 (09:00)
--- NOTE | 2017-12-12 09:09 | P.PNNEU ---
Subjective Subjective Comments: There is a headache fever night sweats chills. Left side feels stronger though feels a little numbness on the left side. Admits to moderate stress Active Medications: Active Medications Aspirin (Aspirin) 325 mg PO DAILY [facility] Enalaprilat (Vasotec Inj) 1.25 mg IV.PUSH Q4H PRN PRN Reason: For SBP > 220 or DBP > 120 Ondansetron HCl (Zofran Inj) 4 mg IV.PUSH Q6H PRN PRN Reason: NAUSEA/VOMITING Sodium Chloride (Ns Flush) 2 ml IV.FLUSH BID JILLIAN Last Admin: 12/11/17 21:54 Dose: 2 ml Sodium Chloride (Ns Flush) 2 ml IV.FLUSH PRN PRN PRN Reason: FLUSH AFTER USING IV ACCESS Allergies/Adverse Reactions: Allergies Allergy/AdvReac Type Severity Reaction Status Date / Time levofloxacin Allergy Severe Hives Unverified 11/14/16 21:01 penicillin G Allergy Intermediate HIVES Unverified 11/14/16 21:01 Review of Systems All other systems reviewed negative except as stated in HPI Physical Exam Vital signs: Vital Signs 12/11/17 14:33 12/11/17 14:45 12/11/17 14:50 Temperature 99.9 F H 99.9 F H Pulse Rate 85 85 Respiratory Rate 16 16 Blood Pressure 169/88 H 169/88 H Pulse Oximetry 96 99 96 12/11/17 15:34 12/11/17 15:59 12/11/17 16:49 Temperature 97.8 F Pulse Rate 88 88 81 Respiratory Rate 18 18 Blood Pressure 156/71 H 154/74 H Pulse Oximetry 95 97 12/11/17 18:32 12/11/17 19:15 12/12/17 00:00 Temperature 97.7 F 99.0 F 99.4 F Pulse Rate 86 82 89 Respiratory Rate 18 18 18 Blood Pressure 142/65 H 140/63 114/60 Pulse Oximetry 66 L 94 L 92 L 12/12/17 04:00 Temperature 97.6 F Pulse Rate 82 Respiratory Rate 18 Blood Pressure 104/52 L Pulse Oximetry 94 L Intake & Output 12/11/17 12/12/17 12/12/17 18:59 06:59 18:59 Intake Total 0 / 0 Output Total 600 / 600 Balance -600 / -600 0 / 0 Weight 91 kg 81.8 kg Intake: Oral 0 / 0 Output: Urine 600 / 600 Other: # Voids 1 2 Date of Last Bowel Movement 12/11/17 Weight On Admission 81.8 kg Narrative: GENERAL: in NAD, SKIN: Warm and dry. HEAD: Atraumatic. Normocephalic. EYES: Pupils equal and round. No scleral icterus. ENT: No nasal bleeding or discharge. Mucous membranes pink and moist. NECK: Trachea midline. No JVD. CARDIOVASCULAR: Regular rate and rhythm. RESPIRATORY: No accessory muscle use. GASTROINTESTINAL: Abdomen soft, non-tender, nondistended. MUSCULOSKELETAL: Extremities without clubbing, cyanosis, or edema. No obvious deformities. NEUROLOGICAL: Awake and alert. No aphasia, fluent articulate, No facial asymmetry, OU 3-2mm, eomi, VFF, No drift, Motor grossly within normal limits. Five out of 5 muscle strength in the arms and legs. Able raise all 4 limbs to gravity minimal left leg paresis, feels reduce pain tone normal in all 4 limbs, PSYCHIATRIC: Monotone speech - Constitutional no acute distress - Routine HEENT Exam Head: Present: normocephalic Eye: Present: EOMI Objective Laboratory Results - last 24 hr 12/11/17 12/11/17 12/11/17 14:45 14:45 14:45 WBC 12.3 H RBC 4.79 Hgb 13.9 POC Hgb (Calc) 13.9 Hct 41.1 POC Hct 41.0 MCV 85.9 MCH 29.0 MCHC 33.7 RDW 13.0 Plt Count 288 MPV 7.1 Neut % (Auto) 86.1 H Lymph % (Auto) 5.9 L [place] % (Auto) 6.6 Eos % (Auto) 1.3 Baso % (Auto) 0.1 Neut # (Auto) 10.6 H Lymph # (Auto) 0.7 L [place] # (Auto) 0.8 Eos # (Auto) 0.2 Baso # (Auto) 0.0 WBC Differential . Differential Comment Auto diff final PT 10.2 INR 1.0 APTT 28.1 Fibrinogen 434 H POC Sodium 140 POC Potassium 3.5 L POC Chloride 100 L POC BUN 19 POC Creatinine 0.7 POC Glucose 131 H Total Creatine Kinase 75 Troponin I Less than 0.02 L C-Reactive Protein Triglycerides Cholesterol LDL Cholesterol, Calc HDL Cholesterol Cholesterol/HDL Ratio Vitamin B12 TSH Beta HCG, Quant 2 Urine Color Urine Clarity Urine pH Ur Specific [place] Urine Protein Urine Glucose (UA) Urine Ketones Urine Occult Blood Urine Nitrate Urine Bilirubin Urine Urobilinogen Ur Leukocyte Esterase Urine RBC Urine WBC Ur Squamous Epith Cells Micro UA Comment Ur Microscopic Review Urine Culture Comments Urine Opiates Screen Ur Barbiturates Screen Ur Amphetamines Screen U Benzodiazepines Scrn Urine Cocaine Screen U Cannabinoids Screen Blood Type Blood Type Recheck Antibody Screen 12/11/17 12/11/17 12/11/17 14:45 14:45 18:00 WBC RBC Hgb POC Hgb (Calc) Hct POC Hct MCV MCH MCHC RDW Plt Count MPV Neut % (Auto) Lymph % (Auto) [place] % (Auto) Eos % (Auto) Baso % (Auto) Neut # (Auto) Lymph # (Auto) [place] # (Auto) Eos # (Auto) Baso # (Auto) WBC Differential Differential Comment PT INR APTT Fibrinogen POC Sodium POC Potassium POC Chloride POC BUN POC Creatinine POC Glucose Total Creatine Kinase Troponin I C-Reactive Protein 1.60 H Triglycerides Cholesterol LDL Cholesterol, Calc HDL Cholesterol Cholesterol/HDL Ratio Vitamin B12 662 TSH 1.140 Beta HCG, Quant Urine Color Urine Clarity Urine pH Ur Specific [place] Urine Protein Urine Glucose (UA) Urine Ketones Urine Occult Blood Urine Nitrate Urine Bilirubin Urine Urobilinogen Ur Leukocyte Esterase Urine RBC Urine WBC Ur Squamous Epith Cells Micro UA Comment Ur Microscopic Review Urine Culture Comments Urine Opiates Screen Neg Ur Barbiturates Screen Neg Ur Amphetamines Screen Neg U Benzodiazepines Scrn Neg Urine Cocaine Screen Neg U Cannabinoids Screen Neg Blood Type O Positive Blood Type Recheck Required Antibody Screen Negative 12/11/17 12/12/17 18:00 07:01 WBC RBC Hgb POC Hgb (Calc) Hct POC Hct MCV MCH MCHC RDW Plt Count MPV Neut % (Auto) Lymph % (Auto) [place] % (Auto) Eos % (Auto) Baso % (Auto) Neut # (Auto) Lymph # (Auto) [place] # (Auto) Eos # (Auto) Baso # (Auto) WBC Differential Differential Comment PT INR APTT Fibrinogen POC Sodium POC Potassium POC Chloride POC BUN POC Creatinine POC Glucose Total Creatine Kinase Troponin I C-Reactive Protein Triglycerides 92 Cholesterol 125 LDL Cholesterol, Calc 61 HDL Cholesterol 46.0 Cholesterol/HDL Ratio 2.71 Vitamin B12 TSH Beta HCG, Quant Urine Color Yellow Urine Clarity Clear Urine pH 6.0 Ur Specific [place] 1.039 H Urine Protein Negative Urine Glucose (UA) Negative Urine Ketones Negative Urine Occult Blood Large H Urine Nitrate Negative Urine Bilirubin Negative Urine Urobilinogen Less than 2 Ur Leukocyte Esterase Negative Urine RBC 34 H Urine WBC 2 Ur Squamous Epith Cells <1 Micro UA Comment Cath-culture not ind Ur Microscopic Review Not Reportable Urine Culture Comments Cath-cult not ind Urine Opiates Screen Ur Barbiturates Screen Ur Amphetamines Screen U Benzodiazepines Scrn Urine Cocaine Screen U Cannabinoids Screen Blood Type Blood Type Recheck Antibody Screen Review/Management - Diagnosis (1) Weakness Code(s): R53.1 - Weakness Status: Acute Current Visit: Yes (2) Stress at home Code(s): F43.9 - Reaction to severe stress, unspecified Status: Acute Current Visit: Yes (3) Hypertension Code(s): I10 - Essential (primary) hypertension Status: Acute Current Visit : Yes (4) Febrile Code(s): R50.9 - Fever, unspecified Status: Acute Current Visit: Yes - Review/Management Plan: Segment consistency on examination. Possible psychogenic weakness related to home stressors. However does have a mild fever and slightly hypertensive. Monitor exam Coworker states she has had a stroke a few years ago although no evidence on MRI scan. Recommendation Exam improved although still with slight numbness on the left arm and leg We will repeat MRI brain scan if it is negative this is not a stroke May need to consider in versus outpatient cognitive, psychiatric therapy Behavioral modification and risk factor reduction. Weight loss, blood pressure control, blood sugar control, lipid control. Exercise Discharge planning
--- NOTE | 2017-12-12 11:52 | ECG ---
Date Performed: 12/11/2017 Time Performed: 15:56:15 PTAGE: 62 years EKG: Sinus rhythm NONSPECIFIC T-WAVE ABNORMALITY BORDERLINE ECG NO PREVIOUS TRACING DOCTOR: Chad Hines Interpretating Date/Time 12/12/2017 11:49:54
--- NOTE | 2017-12-12 13:03 | MR ---
EXAM DATE: 12/12/2017 12:58 PM EDT AGE/SEX: 62 years / Female INDICATIONS: CVA. Left sided weakness. CLINICAL DATA: This is the patient's subsequent encounter. Patient reports that signs and symptoms h ave been present for 1 week and indicates a pain score of 0/10. MEDICAL/SURGICAL HISTORY: Hypertension. Lupus. Stroke. . cleared by rad. [place] [facility] [place]. . TECHNIQUE: Multiplanar, multisequence examination of the brain was performed without contrast. FINDINGS: Cerebrum: The ventricles are normal for age. No evidence of midline shift, mass lesion, hemorrhage or acute infarction. No extraaxial fluid collections are seen. The pituitary gland and suprasellar cistern are normal in configuration. White Matter: No significant signal abnormalities are seen in the white matter. Posterior Fossa: The cerebellum and brainstem are intact. The 4th ventricle is midline. The cerebel lopontine angle is unremarkable. The cerebellar tonsils are normal in position. Diffusion Imaging: No focal areas of restricted diffusion are seen. No evidence of acute infarction . Extracranial: The visualized portions of the orbits and paranasal sinuses are unremarkable. CONCLUSION: 1. Stable evaluation the brain. 2. No evidence of acute infarct, hemorrhage, mass or edema. Electronically signed by: Edvin Guthrie MD 12/12/2017 1:01 PM EDT
--- NOTE | 2017-12-12 14:18 | P.DCO ---
- Physical Therapy Order: Evaluate and treat - Home Health Nursing Order: Medical education, Signs/symptoms of disease process - Certification I have seen patient Alina Kwok on 12/12/17. My clinical findings support the need for the requested home health care services because: Deconditioned with increased weakness, Limited ability to care for self I certify that my clinical findings support that this patient is homebound because: Unsteady gait/balance
--- NOTE | 2017-12-12 14:21 | P.DS ---
<Oly Nevarez W - Last Filed: 12/12/17 15:15> Date of admission: 12/11/17 16:36 Primary care physician: UNKNOWN Attending physician on discharge: Jac Rodriges Anticipated date of discharge: 12/12/17 Brief History from admission: This is a 62-year-old woman who presents to the emergency department complaining of. History comes from EMS, and from records from the [facility] urgent care, and coworker. Coworker states that she has not felt well for the entire day, she was referred to an urgent care. At the urgent care they noted that she had acute headache with dizziness, off balance, double vision, nausea with resolving symptoms. Was referred for an outpatient CT scan. Coworker states when they picked her up from the urgent care she then had some facial asymmetry, and weakness in her left leg. She thus brought her here. Patient is unable to provide any additional history. DS: Diagnosis - Discharge Diagnosis (1) Weakness Status: Acute DS: Summary Hospital Course: This is a 62-year-old female with a past medical history which includes asthma, HTN, hypothyroidism and fibromyalgia. Patient presented to the emergency department 12/11/17 after being seen at urgent care center. Coworker states that she had not felt well for the entire day, she was referred to an urgent care. At the urgent care they noted that she had acute headache with dizziness , off balance, double vision, nausea with resolving symptoms. Was referred for an outpatient CT scan. Coworker states when they picked her up from the urgent care she then had some facial asymmetry, and weakness in her left leg. She thus brought her to the ER. cta brain negative. mri brain negative for acute stroke. Carotid Doppler Study 12/11/17 00:00 CONCLUSION: 1. Right Internal Carotid Artery: No significant plaque or narrowing. 2. Left Internal Carotid Artery: No significant plaque or narrowing. Chest X-Ray 12/11/17 14:45 CONCLUSION: Poor inspiratory chest No evidence of acute process. Head CT 12/11/17 14:45 CONCLUSION: 1. No evidence of acute infarct, hemorrhage, mass or edema. 2. Normal CT of the brain. Head CTA 12/11/17 14:45 CONCLUSION: 1. No evidence of proximal intracranial steno-occlusive vascular disease. 2. Normal CTA Neck CTA 12/11/17 14:45 CONCLUSION: 1. Negative CTA of the carotids. 2. Both vertebral arteries are widely patent. Head MRI 12/11/17 14:53 CONCLUSION: 1. Negative MR Brain non contrast. 2. No evidence of acute infarct, hemorrhage, mass or edema. Head MRI 12/12/17 00:00 CONCLUSION: 1. Stable evaluation the brain. 2. No evidence of acute infarct, hemorrhage, mass or edema. Per Neurology Dr. Barragan repeat MRI brain scan if it is negative this is not a stroke May need to consider in versus outpatient cognitive, psychiatric therapy Behavioral modification and risk factor reduction. Weight loss, blood pressure control, blood sugar control, lipid control. Exercise Case discussed with CP case management Naomi to assist in coordinating patient 's outpatient behavioral health/psych follow up - Time Spent with Patient Total time spent providing and/or coordinating discharge services: Greater than 30 minutes - Quality: Stroke Last date observed well: 12/10/17 Last time observed well: 09:00 Exam Vital signs: Vital Signs 12/11/17 14:33 12/11/17 14:45 12/11/17 14:50 Temperature 99.9 F H 99.9 F H Pulse Rate 85 85 Respiratory Rate 16 16 Blood Pressure 169/88 H 169/88 H Pulse Oximetry 96 99 96 12/11/17 15:34 12/11/17 15:59 12/11/17 16:49 Temperature 97.8 F Pulse Rate 88 88 81 Respiratory Rate 18 18 Blood Pressure 156/71 H 154/74 H Pulse Oximetry 95 97 12/11/17 18:32 12/11/17 19:15 12/12/17 00:00 Temperature 97.7 F 99.0 F 99.4 F Pulse Rate 86 82 89 Respiratory Rate 18 18 18 Blood Pressure 142/65 H 140/63 114/60 Pulse Oximetry 66 L 94 L 92 L 12/12/17 04:00 12/12/17 08:00 12/12/17 09:00 Temperature 97.6 F 100.1 F H Pulse Rate 82 81 84 Respiratory Rate 18 18 Blood Pressure 104/52 L 110/55 L Pulse Oximetry 94 L 90 L 12/12/17 12:00 Temperature 97.6 F Pulse Rate 90 Respiratory Rate 16 Blood Pressure 116/63 Pulse Oximetry 95 Intake & Output 12/11/17 12/12/17 12/12/17 18:59 06:59 18:59 Intake Total 0 / 0 Output Total 600 / 600 Balance -600 / -600 0 / 0 Weight 91 kg 81.8 kg Intake: Oral 0 / 0 Output: Urine 600 / 600 Other: # Voids 1 2 Date of Last Bowel Movement 12/11/17 12/11/17 Weight On Admission 81.8 kg Narrative: GENERAL: in NAD, SKIN: Warm and dry. HEAD: Atraumatic. Normocephalic. EYES: Pupils equal and round. No scleral icterus. ENT: No nasal bleeding or discharge. Mucous membranes pink and moist. NECK: Trachea midline. No JVD. CARDIOVASCULAR: Regular rate and rhythm. RESPIRATORY: Clear through out. No accessory muscle use. GASTROINTESTINAL: Abdomen soft, non-tender, nondistended. MUSCULOSKELETAL: Extremities without clubbing, cyanosis, or edema. No obvious deformities. NEUROLOGICAL: Awake and alert. No aphasia, fluent articulate, No facial asymmetry. Motor grossly within normal limits. Five out of 5 muscle strength in bilateral upper and lower extremities Results Procedures completed during hospitalization: none Labs on day of discharge: Labs from last 24 hours 12/12/17 12/12/17 12/11/17 07:01 07:01 18:00 WBC RBC Hgb POC Hgb (Calc) Hct POC Hct MCV MCH MCHC RDW Plt Count MPV Neut % (Auto) Lymph % (Auto) [place] % (Auto) Eos % (Auto) Baso % (Auto) Neut # (Auto) Lymph # (Auto) [place] # (Auto) Eos # (Auto) Baso # (Auto) WBC Differential Differential Comment PT INR APTT Fibrinogen POC Sodium POC Potassium POC Chloride POC BUN POC Creatinine POC Glucose Hemoglobin A1c Pending Total Creatine Kinase Troponin I C-Reactive Protein Triglycerides 92 Cholesterol 125 LDL Cholesterol, Calc 61 HDL Cholesterol 46.0 Cholesterol/HDL Ratio 2.71 Vitamin B12 TSH Beta HCG, Quant Urine Color Yellow Urine Clarity Clear Urine pH 6.0 Ur Specific [place] 1.039 H Urine Protein Negative Urine Glucose (UA) Negative Urine Ketones Negative Urine Occult Blood Large H Urine Nitrate Negative Urine Bilirubin Negative Urine Urobilinogen Less than 2 Ur Leukocyte Esterase Negative Urine RBC 34 H Urine WBC 2 Ur Squamous Epith Cells <1 Micro UA Comment Cath-culture not ind Ur Microscopic Review Not Reportable Urine Culture Comments Cath-cult not ind Urine Opiates Screen Ur Barbiturates Screen Ur Amphetamines Screen U Benzodiazepines Scrn Urine Cocaine Screen U Cannabinoids Screen Blood Type Blood Type Recheck Antibody Screen 12/11/17 12/11/17 12/11/17 18:00 14:45 14:45 WBC RBC Hgb POC Hgb (Calc) Hct POC Hct MCV MCH MCHC RDW Plt Count MPV Neut % (Auto) Lymph % (Auto) [place] % (Auto) Eos % (Auto) Baso % (Auto) Neut # (Auto) Lymph # (Auto) [place] # (Auto) Eos # (Auto) Baso # (Auto) WBC Differential Differential Comment PT INR APTT Fibrinogen POC Sodium POC Potassium POC Chloride POC BUN POC Creatinine POC Glucose Hemoglobin A1c Total Creatine Kinase Troponin I C-Reactive Protein 1.60 H Triglycerides Cholesterol LDL Cholesterol, Calc HDL Cholesterol Cholesterol/HDL Ratio Vitamin B12 662 TSH 1.140 Beta HCG, Quant Urine Color Urine Clarity Urine pH Ur Specific [place] Urine Protein Urine Glucose (UA) Urine Ketones Urine Occult Blood Urine Nitrate Urine Bilirubin Urine Urobilinogen Ur Leukocyte Esterase Urine RBC Urine WBC Ur Squamous Epith Cells Micro UA Comment Ur Microscopic Review Urine Culture Comments Urine Opiates Screen Neg Ur Barbiturates Screen Neg Ur Amphetamines Screen Neg U Benzodiazepines Scrn Neg Urine Cocaine Screen Neg U Cannabinoids Screen Neg Blood Type O Positive Blood Type Recheck Required Antibody Screen Negative 12/11/17 12/11/17 12/11/17 14:45 14:45 14:45 WBC 12.3 H RBC 4.79 Hgb 13.9 POC Hgb (Calc) 13.9 Hct 41.1 POC Hct 41.0 MCV 85.9 MCH 29.0 MCHC 33.7 RDW 13.0 Plt Count 288 MPV 7.1 Neut % (Auto) 86.1 H Lymph % (Auto) 5.9 L [place] % (Auto) 6.6 Eos % (Auto) 1.3 Baso % (Auto) 0.1 Neut # (Auto) 10.6 H Lymph # (Auto) 0.7 L [place] # (Auto) 0.8 Eos # (Auto) 0.2 Baso # (Auto) 0.0 WBC Differential . Differential Comment Auto diff final PT 10.2 INR 1.0 APTT 28.1 Fibrinogen 434 H POC Sodium 140 POC Potassium 3.5 L POC Chloride 100 L POC BUN 19 POC Creatinine 0.7 POC Glucose 131 H Hemoglobin A1c Total Creatine Kinase 75 Troponin I Less than 0.02 L C-Reactive Protein Triglycerides Cholesterol LDL Cholesterol, Calc HDL Cholesterol Cholesterol/HDL Ratio Vitamin B12 TSH Beta HCG, Quant 2 Urine Color Urine Clarity Urine pH Ur Specific [place] Urine Protein Urine Glucose (UA) Urine Ketones Urine Occult Blood Urine Nitrate Urine Bilirubin Urine Urobilinogen Ur Leukocyte Esterase Urine RBC Urine WBC Ur Squamous Epith Cells Micro UA Comment Ur Microscopic Review Urine Culture Comments Urine Opiates Screen Ur Barbiturates Screen Ur Amphetamines Screen U Benzodiazepines Scrn Urine Cocaine Screen U Cannabinoids Screen Blood Type Blood Type Recheck Antibody Screen - Impressions ITS Impressions Carotid Doppler Study 12/11/17 00:00 CONCLUSION: 1. Right Internal Carotid Artery: No significant plaque or narrowing. 2. Left Internal Carotid Artery: No significant plaque or narrowing. Chest X-Ray 12/11/17 14:45 CONCLUSION: Poor inspiratory chest No evidence of acute process. Head CT 12/11/17 14:45 CONCLUSION: 1. No evidence of acute infarct, hemorrhage, mass or edema. 2. Normal CT of the brain. Report was called by Dr. Guthrie to Dr. Escobar at 1528. Head CTA 12/11/17 14:45 CONCLUSION: 1. No evidence of proximal intracranial steno-occlusive vascular disease. 2. Normal CTA Neck CTA 12/11/17 14:45 CONCLUSION: 1. Negative CTA of the carotids. 2. Both vertebral arteries are widely patent. Head MRI 12/12/17 00:00 CONCLUSION: 1. Stable evaluation the brain. 2. No evidence of acute infarct, hemorrhage, mass or edema. <Jac Rodriges - Last Filed: 01/06/18 18:54> Date of admission: 12/11/17 16:36 Primary care physician: UNKNOWN DS: Diagnosis - Discharge Diagnosis (1) Weakness Status: Acute (2) Hypertension Status: Acute DS: Summary Hospital Course: Patient examined. Assessment and plan formulated with Oly Nevarez PA-C. I agree with the above. - Time Spent with Patient Total time spent providing and/or coordinating discharge services: Results - Impressions ITS Impressions Carotid Doppler Study 12/11/17 00:00 CONCLUSION: 1. Right Internal Carotid Artery: No significant plaque or narrowing. 2. Left Internal Carotid Artery: No significant plaque or narrowing. Chest X-Ray 12/11/17 14:45 CONCLUSION: Poor inspiratory chest No evidence of acute process. Head CT 12/11/17 14:45 CONCLUSION: 1. No evidence of acute infarct, hemorrhage, mass or edema. 2. Normal CT of the brain. Report was called by Dr. Guthrie to Dr. Escobar at 1528. Head CTA 12/11/17 14:45 CONCLUSION: 1. No evidence of proximal intracranial steno-occlusive vascular disease. 2. Normal CTA Neck CTA 12/11/17 14:45 CONCLUSION: 1. Negative CTA of the carotids. 2. Both vertebral arteries are widely patent. Head MRI 12/12/17 00:00 CONCLUSION: 1. Stable evaluation the brain. 2. No evidence of acute infarct, hemorrhage, mass or edema. Discharge Plan - Discharge Order Discharge Orders: Discharge Order (Routine); Ordered 12/12/17 Ordered By: Jac Rodriges - Discharge Details Anticipated Discharge Date: 12/12/17 - Physicians Team Primary Care Provider: UNKNOWN, Attending Provider: Jac Rodriges Other Providers: Steven Barragan MD ; Babatunde Bass MD ; [facility]
--- NOTE | 2017-12-12 14:55 | ECHRPT ---
Indication: CVA / TIA CONCLUSIONS Normal left ventricular size and wall thickness. The left ventricular systolic function is normal wi th an estimated ejection fraction in the range of 60-65%. No definite regional wall motion abnormalitie s are present. Trace mitral valve regurgitation. There is trace tricuspid valve regurgitation. The estimated pulmonary arterial pressure is 28 mmHg. BP: / HR: Rhythm: MEASUREMENTS (Male / Female) Normal Values Technical Quality:Technically difficult study 2D ECHO LV Diastolic Diameter PLAX 3.5 cm 4.2 - 5.9 / 3.9 - 5.3 cm LV Systolic Diameter PLAX 2.5 cm IVS Diastolic Thickness 1.1 cm 0.6 - 1.0 / 0.6 - 0.9 cm LVPW Diastolic Thickness 1.1 cm 0.6 - 1.0 / 0.6 - 0.9 cm LV Relative Wall Thickness 0.6 LVOT Diameter 2.1 cm Aortic Root Diameter 2.5 cm LA Systolic Diameter LX 2.9 cm 3.0 - 4.0 / 2.7 - 3.8 cm M-MODE AV Cusp Separation MM 2.1 cm DOPPLER AV Peak Velocity 138.0 cm/s AV Peak Gradient 7.6 mmHg LVOT Peak Velocity 106.0 cm/s LVOT Peak Gradient 4.5 mmHg AV Area Cont Eq pk 2.7 cm Mitral E Point Velocity 55.8 cm/s Mitral A Point Velocity 49.9 cm/s Mitral E to A Ratio 1.1 LV E' Lateral Velocity 13.5 cm/s Mitral E to LV E' Lateral Ratio 4.1 LV E' Septal Velocity 6.0 cm/s Mitral E to LV E' Septal Ratio 9.2 TR Peak Velocity 214.0 cm/s TR Peak Gradient 18.3 mmHg Right Atrial Pressure 10.0 mmHg Pulmonary Artery Systolic Pressu 28.3 mmHg Right Ventricular Systolic Press 28.3 mmHg PV Peak Velocity 107.0 cm/s PV Peak Gradient 4.6 mmHg FINDINGS LEFT VENTRICLE Normal left ventricular size and wall thickness. The left ventricular systolic function is normal wi th an estimated ejection fraction in the range of 60-65%. No definite regional wall motion abnormalitie s are present. RIGHT VENTRICLE Normal right ventricular size and systolic function. LEFT ATRIUM The left atrial size is normal. RIGHT ATRIUM The right atrial size is normal. ATRIAL SEPTUM Normal atrial septal thickness without atrial level shunting by limited color doppler interrogation. AORTA The aortic root and proximal ascending aorta are normal in size on limited imaging. MITRAL VALVE Trace mitral valve regurgitation. AORTIC VALVE Trileaflet aortic valve. No aortic valve stenosis or regurgitation. TRICUSPID VALVE There is trace tricuspid valve regurgitation. The estimated pulmonary arterial pressure is 28 mmHg. PULMONARY VALVE No pulmonary valve regurgitation or stenosis. VESSELS The inferior vena cava is normal in size. PERICARDIUM No pericardial effusion. Dung Cruz MD (Electronically Signed) Final Date:12 December 2017 14:54
[2017-12-12 16:53] LABS: Hemoglobin A1c 5.7 % (4.3-6.0)
[2017-12-12 17:28] VITALS: BP 115/61; RESP 17; TEMP 98.7; O2SAT 96
[2017-12-12 18:30] VITALS: PULSE 88
== END 2017-12-12 18:49 | disposition home health service (06) ==
LOC: NED 14:27 → OBSVTOIN 16:36 → NEDA 16:36 → INTOOBSV 16:36 → NEDA 18:50 → N05 19:24
PROVIDERS: ADMIT Hospitalist; ATTEND Hospitalist